=== PATIENT | male | born 1990 | race Caucasian/White ===

== ENCOUNTER 2022-06-18 07:00 | Emergency (ER) | payer SELFPAY ==
[~2022-06-18] VITALS: Ht 162.6 cm; Wt 74.8 kg
[2022-06-18 07:24] VITALS: BP 143/81
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
--- NOTE | 2022-06-18 07:30 | NUR ---
DR KERN AT PT SIDE FOR EVAL
[2022-06-18 07:50] VITALS: BP 140/70
== END 2022-06-18 07:36 | disposition home or self-care (01) ==
LOC: MED 07:00
DX: F10.129 Alcohol abuse with intoxication, unspecified (principal); Y90.9 Presence of alcohol in blood, level not specified; V49.88XA Car occupant (driver) (passenger) injured in other specified transport accidents, initial encounter; Y93.89 Activity, other specified; Y92.89 Other specified places as the place of occurrence of the external cause; Y99.8 Other external cause status
CPT/HCPCS: 99283